=== PATIENT | female | born 1950 | race African-American/Black ===

== ENCOUNTER 2017-02-18 15:09 | Inpatient (IN) | payer BC, OTHER ==
--- NOTE | 2017-02-18 15:13 | PDOC ---
Rapid Medical Evaluation Time Seen by Provider: 02/18/17 15:13 Medical Evaluation: Allergies Allergy/AdvReac Type Severity Reaction Status Date / Time shellfish derived Allergy Difficulty Verified 10/30/14 17:36 Breathing I have performed a brief in-person evaluation of this patient. The patient presents with a chief complaint of: Pertinent physical exam findings: I have ordered the following: The patient will proceed to the ED for further evaluation.
--- NOTE | 2017-02-18 15:22 | PDOC ---
History of Present Illness - General History Source: Patient Exam Limitations: No Limitations - History of Present Illness Initial Comments: 02/18/17 16:12 The patient is a 66 year old female, with significant past medical history of IDDM,who presents today sent in by Dr. Galeas. The patient is complaining of epigastric pain, nausea, vomiting, and diarrhea, starting on Friday, 3 days ago, after eating 2 fish sandwiches from a fast food restaurant. She describes the epigastric pain as an achy cramping that radiates to the throat. The pain is 8/10 in severity and is associated with belching, hiccups, and a sour taste. The patient report multiple episodes of vomiting that was green in color. She reports that the diarrhea is pasty, not watery. Her last meal was on Friday and she only had cranberry juice and water today. The patient visited [facility] yesterday and was discharged with a diagnosis of a UTI. Denies chest pain, SOB. Denies fever, chills. Allergies: shellfish Surgical Hx: appendectomy PCP: Dr. Galeas <Naomi Knox - Last Filed: 02/18/17 16:20> <Gabriella Mendez - Last Filed: 02/18/17 23:11> - General History Source: Patient Exam Limitations: No Limitations <Mariela Loving - Last Filed: 02/20/17 11:25> - General Stated Complaint: DIFFICULTY BREATHING Time Seen by Provider: 02/18/17 15:13 Past History <Naomi Knox - Last Filed: 02/18/17 16:20> <Gabriella Mendez - Last Filed: 02/18/17 23:11> - Past Medical History Asthma: Yes Diabetes: Yes HTN: Yes - Psycho/Social/Smoking Cessation Hx Suicidal Ideation: No Smoking Status: No Smoking History: Never smoked Number of Cigarettes Smoked Daily: 0 <Mariela Loving - Last Filed: 02/20/17 11:25> - Past Medical History Allergies/Adverse Reactions: Allergies Allergy/AdvReac Type Severity Reaction Status Date / Time shellfish derived Allergy Difficulty Verified 10/30/14 17:36 Breathing Home Medications: Ambulatory Orders Amlodipine/Valsartan [Exforge 5-160 mg Tablet] 1 tab PO DAILY 10/30/14 Ibuprofen [Motrin -] 600 mg PO TID #21 tablet 10/30/14 Oxycodone HCl/Acetaminophen [Percocet 5-325 mg Tablet -] 1 - 2 tab PO Q6H #14 tablet 10/30/14 Insulin Lispro [Humalog] 2 unit SQ DAILY 02/18/17 Review of Systems - Review of Systems Able to Perform ROS?: Yes Comments:: 02/18/17 16:13 GENERAL/CONSTITUTIONAL: No: fever, chills, weakness, loss of appetite. HEAD, EYES, EARS, NOSE AND THROAT: No: change in vision, ear pain, discharge, sore throat, throat swelling. CARDIOVASCULAR: No: chest pain, lightheadedness, palpitations, syncope RESPIRATORY: No: cough, shortness of breath, wheezing, hemoptysis, stridor. GASTROINTESTINAL: +epigastric pain, nausea, vomiting, diarrhea. No: rectal bleeding, constipation. GENITOURINARY: No: dysuria, hematuria, frequency, urgency, flank pain. MUSCULOSKELETAL: No: back pain, neck pain, joint pain, muscle swelling or pain SKIN: No: lesions, pallor, rash or easy bruising. NEUROLOGIC: No: headache, vertigo, paresthesias, weakness ENDOCRINE: No: unexplained weight gain or loss HEMATOLOGIC/LYMPHATIC: No: anemia, easy bleeding, swelling nodes <Naomi Knox - Last Filed: 02/18/17 16:20> *Physical Exam - Vital Signs Last Vital Signs Temp Pulse Resp BP Pulse Ox 98.8 F 74 24 180/76 100 02/18/17 15:49 02/18/17 15:49 02/18/17 15:49 02/18/17 15:49 02/18/17 15:49 - Physical Exam Comments: 02/18/17 16:14 GENERAL: The patient is in no acute distress. HEAD: Normal with no signs of trauma. EYES: PERRLA, EOMI, sclera anicteric, conjunctiva clear. ENT: Ears normal, nares patent, oropharynx clear without exudates. Moist mucous membranes. NECK: Normal range of motion, supple without lymphadenopathy, JVD, or masses. LUNGS: Breath sounds equal, clear to auscultation bilaterally. No wheezes, and no crackles. HEART:Regular rate and rhythm, normal S1 and S2 without murmur, rub or gallop. ABDOMEN: RUQ tenderness to palpation. Soft, normoactive bowel sounds. No guarding, no rebound. EXTREMITIES: Normal range of motion, no edema. No clubbing or cyanosis. No erythema, or tenderness. NEUROLOGICAL: Cranial nerves II through XII grossly intact. Normal speech. No focal neurological deficits. MUSCULOSKELETAL: Back nontender to palpation, no CVA tenderness SKIN: Warm, Dry, normal turgor, no rashes or lesions noted. <Naomi Knox - Last Filed: 02/18/17 16:20> - Vital Signs Last Vital Signs Temp Pulse Resp BP Pulse Ox 98.7 F 64 20 153/75 98 02/18/17 18:19 02/18/17 18:19 02/18/17 18:19 02/18/17 18:19 02/18/17 18:19 <Gabriella Mendez - Last Filed: 02/18/17 23:11> Heart Score/ECG Review #1 ECG reviewed & interpreted by me at: 15:54 02/18/17 15:54 Twelve-lead EKG was performed and reviewed by me. There is normal sinus rhythm with a normal rate of 69 bpm. Left axis deviation. The intervals are normal - pr : 150ms, QRS:94ms, QTc:475ms. Non specific ST change. Diffuse t wave flattening <Mariela Loving - Last Filed: 02/20/17 11:25> ED Treatment Course - RADIOLOGY Radiograph Interpretation: 02/18/17 16:20 EXAM#: TYPE/EXAM: RESULT: [id number] RAD/CHEST X-RAY PORTABLE* Rule out sepsis Portable chest x-ray AP sitting. Since 08/25/2009, the cardiac silhouette remains borderline in size allowing for magnification with mild unfolding of the aortic arch and the lung is clear. Mediastinum and visualized osseous structures appear intact. Impression: No significant interval change or acute lung disease is present Reported By: Srinivasa Rios MD 02/18/17 1602 <Naomi Knox - Last Filed: 02/18/17 16:20> - LABORATORY CBC & Chemistry Diagram: 02/18/17 17:44 02/18/17 17:44 - ADDITIONAL ORDERS Additional order review: Laboratory Results 06/03/0102/18/17 02/18/17 17:57 17:44 17:44 INR PTT (Actin FS) Anticoagulation Therapy Puncture Site ABG pH ABG pCO2 at Pt Temp ABG pO2 at Pt Temp ABG HCO3 ABG O2 Sat (Measured) ABG O2 Content ABG Base Excess Prashanth Test O2 Delivery Device Oxygen Flow Rate Vent Mode Vent Rate Mechanical Rate PEEP Pressure Support Vent Sodium Potassium Chloride Carbon Dioxide Anion Gap BUN Creatinine Creat Clearance w eGFR Random Glucose Lactic Acid 1.3 Calcium Total Bilirubin AST ALT Alkaline Phosphatase Creatine Kinase CK-MB (CK-2) Troponin I Total Protein Albumin Total Amylase 56 Lipase 102 Acetone, Qual Blood Type A POSITIVE Antibody Screen Positive H Antibody Identification Anti e Antigen Identification Y 02/18/17 02/18/17 02/18/17 17:44 17:44 17:44 INR 1.25 H PTT (Actin FS) 27.9 Anticoagulation Therapy Puncture Site ABG pH ABG pCO2 at Pt Temp ABG pO2 at Pt Temp ABG HCO3 ABG O2 Sat (Measured) ABG O2 Content ABG Base Excess Prashanth Test O2 Delivery Device Oxygen Flow Rate Vent Mode Vent Rate Mechanical Rate PEEP Pressure Support Vent Sodium 138 Potassium 3.7 Chloride 98 Carbon Dioxide 25 Anion Gap 15 BUN 15 Creatinine 0.9 Creat Clearance w eGFR > 60 Random Glucose 164 H D Lactic Acid 2.2 H* Calcium 9.3 Total Bilirubin 1.5 H D AST 24 D ALT 21 D Alkaline Phosphatase 66 D Creatine Kinase 339 H CK-MB (CK-2) 2.672 Troponin I < 0.02 Total Protein 7.4 Albumin 3.9 Total Amylase Lipase Acetone, Qual Negative L Blood Type Antibody Screen Antibody Identification Antigen Identification 02/18/17 16:20 INR PTT (Actin FS) Anticoagulation Therapy Y Puncture Site Right radial ABG pH 7.55 H ABG pCO2 at Pt Temp 27.3 L ABG pO2 at Pt Temp 84.3 ABG HCO3 24.0 ABG O2 Sat (Measured) 98.0 ABG O2 Content 18.5 ABG Base Excess 2.9 H Prashanth Test Positive O2 Delivery Device Room air Oxygen Flow Rate Room air Vent Mode Y Vent Rate Y Mechanical Rate Y PEEP 0.0 Pressure Support Vent Y Sodium Potassium Chloride Carbon Dioxide Anion Gap BUN Creatinine Creat Clearance w eGFR Random Glucose Lactic Acid Calcium Total Bilirubin AST ALT Alkaline Phosphatase Creatine Kinase CK-MB (CK-2) Troponin I Total Protein Albumin Total Amylase Lipase Acetone, Qual Blood Type Antibody Screen Antibody Identification Antigen Identification 02/18/17 17:44 RBC 4.65 MCV 89.8 MCHC 33.7 RDW 11.8 MPV 10.3 Neutrophils % 74.8 D Lymphocytes % 16.3 D Monocytes % 8.6 Eosinophils % 0.1 D Basophils % 0.2 - Medications Given in the ED: ED Medications Discontinued Medications Generic Name Dose Route Start Last Admin Trade Name Lion PRN Reason Stop Dose Admin Famotidine/Sodium Chloride 50 mls @ 100 mls/hr 02/18/17 15:41 02/18/17 17:24 Pepcid 20 Mg Premixed Ivpb - IVPB 02/18/17 16:10 100 mls/hr ONCE ONE Administration Sodium Chloride 1,000 mls @ 1,000 mls/hr 02/18/17 15:40 02/18/17 17:24 Normal Saline - IV 02/18/17 16:39 1,000 mls/hr ASDIR STA Administration Sodium Chloride 1,000 mls @ 1,000 mls/hr 02/18/17 18:46 02/18/17 20:08 Normal Saline - IV 02/18/17 19:45 1,000 mls/hr ASDIR STA Administration Metoclopramide HCl 10 mg 02/18/17 18:48 02/18/17 20:00 Reglan Injection - IVPB 02/18/17 18:49 10 mg ONCE ONE Administration Morphine Sulfate 4 mg 02/18/17 15:41 02/18/17 17:24 Morphine Injection - IVPUSH 02/18/17 15:42 4 mg ONCE ONE Administration Ondansetron HCl 4 mg 02/18/17 15:40 02/18/17 17:24 Zofran Injection IVPUSH 02/18/17 15:41 4 mg ONCE ONE Administration <Gabriella Mendez - Last Filed: 02/18/17 23:11> - LABORATORY CBC & Chemistry Diagram: 02/19/17 06:30 02/19/17 06:30 <Mariela Loving - Last Filed: 02/20/17 11:25> Medical Decision Making - Medical Decision Making 02/18/17 22:[address] Nova Melendez who is covering for Dr. Joey Galeas (via answering service) at 22:41 Awaiting call back 02/18/17 23:11 Patient's case discussed with Dr. Melendez at 22:49 <Gabriella Mendez - Last Filed: 02/18/17 23:11> - Medical Decision Making 02/18/17 15:22 A portion of this note was documented by scribe services under my direction. I have reviewed the details of the note, within reason, and agree with the documentation with the following case summary and management plan written by me. 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 Pt states that three days ago, she returned from [place], she had 2 fish sandwiches from [facility] Since then, she has had nausea, vomiting, epigastric pain and loose stools No fevers or chills She was seen at an outside hospital Diagnosed with a UTI Pt was discharged to home Seen by her PMD today and sent to the ER 02/18/17 16:55 Pt labs not drawn or sent Awaiting labs and IVF 02/18/17 17:15 02/18/17 17:18 Laboratory Tests 02/18/17 16:20 ABG pH 7.55 H ABG pCO2 at Pt Temp 27.3 L ABG pO2 at Pt Temp 84.3 ABG Base Excess 2.9 H 02/18/17 17:25 CXR: nml 02/18/17 17:38 Labs not sent 02/18/17 18:41 Laboratory Tests 02/18/17 17:44 WBC 8.5 D Hgb 14.1 D Hct 41.7 Plt Count 192 Neutrophils % 74.8 D Lymphocytes % 16.3 D Laboratory Tests 02/18/17 02/18/17 02/18/17 17:44 17:44 17:44 Sodium 138 Potassium 3.7 Chloride 98 Carbon Dioxide 25 Anion Gap 15 BUN 15 Creatinine 0.9 Random Glucose 164 H D Lactic Acid 2.2 H* Total Bilirubin 1.5 H D Creatine Kinase 339 H Troponin I < 0.02 Total Amylase 56 Lipase 102 Acetone, Qual Negative L 02/18/17 18:42 Pt remains nauseous No evidence of DKA Will do CT abd and pelvis Pt signed out to Dr. Jerez <Mariela Loving - Last Filed: 02/20/17 11:25> *DC/Admit/Observation/Transfer - Attestations Scribe Attestion: 02/18/17 16:14 Documentation prepared by CON Junior, acting as biomedical equipment specialist for Mariela Loving MD. <Naomi Knox - Last Filed: 02/18/17 16:20> <Gabriella Mendez - Last Filed: 02/18/17 23:11> <Mariela Loving - Last Filed: 02/20/17 11:25> Diagnosis at time of Disposition: Ileus, SBO (small bowel obstruction) Abdominal pain Qualifiers: Abdominal location: generalized Qualified Code(s): R10.84 - Generalized abdominal pain - Referrals
[2017-02-18] MEDS ORDERED: SODIUM CHLORIDE 1,000 ML IV STA ×2 (15:40→18:46)
[2017-02-18] MEDS ORDERED: ONDANSETRON 4 MG/2 ML VIAL IVPUSH ONE (15:40)
[2017-02-18] MEDS ORDERED: FAMOTIDINE 20 MG/50 ML IVPB 50 ML IVPB ONE ×2 (15:41→17:01)
[2017-02-18] MEDS ORDERED: morphine CARPU-JECT 4 MG/1 ML DISP.SYRIN IVPUSH ONE (15:41)
[2017-02-18] MEDS ORDERED: morphine CARPU-JECT 4 MG/1 ML DISP.SYRIN ONE (17:01)
[2017-02-18] MEDS ORDERED: ONDANSETRON 4 MG/2 ML VIAL ONE (17:01)
[2017-02-18 17:09] LABS: ALLENS TEST POSITIVE; ART PUNCT SITE RIGHT RADIAL; ARTERIAL BLOOD GAS BASE EXCESS 2.9 meq/l (-2-2); ARTERIAL BLOOD GAS PO2 84.3 mmHg (80-100); PT. ON O2? NO
[2017-02-18 17:10] LABS: LPM/O2% ROOM AIR; TYPE OF O2 ROOM AIR
[2017-02-18 17:11] LABS: ARTERIAL BLOOD GAS pH 7.55 (7.35-7.45)
[2017-02-18 17:53] LABS: BASOPHIL 0.2 % (0-2.0); EOSINOPHIL 0.1 % (0-4.5); MCH 30.3 pg (25.7-33.7); MCHC 33.7 g/dl (32.0-36.0); MEAN CELL VOLUME 89.8 fl (80-96); MEAN PLT VOLUME 10.3 fl (7.5-11.1); NEUTROPHILS 74.8 % (42.8-82.8); PLATELET COUNT 192 K/MM3 (134-434); RDW 11.8 % (11.6-15.6); WHITE BLOOD COUNT 8.5 K/mm3 (4.0-10.0)
[2017-02-18 18:06] LABS: INR 1.25 (0.82-1.09); PROTHROMBIN TIME (PATIENT) 13.8 SEC (9.98-11.88)
[2017-02-18 18:08] LABS: AMYLASE 56 U/L (25-115)
[2017-02-18 18:09] LABS: ACTIVATED PTT 27.9 SECONDS (26.9-34.4)
[2017-02-18 18:20] LABS: ALBUMIN 3.9 g/dl (3.4-5.0); ANION GAP 15 (8-16); BILIRUBIN,TOTAL 1.5 mg/dL (0.2-1.0); CALCIUM 9.3 mg/dL (8.5-10.1); CO2 25 mmol/L (21-32); COCKROFT - GAULT 97.75; CREATININE 0.9 mg/dL (0.55-1.02); GLUCOSE,RANDOM 164 mg/dL (74-106); SGPT/ALT 21 U/L (12-78); TOT PROT 7.4 g/dl (6.4-8.2)
[2017-02-18 18:22] LABS: ALK PHOS 66 U/L (45-117); TROPONIN I < 0.02 ng/ml (0.00-0.05)
[2017-02-18 18:25] LABS: SGOT/AST 24 U/L (15-37)
[2017-02-18 18:27] LABS: ACETONE SERUM NEGATIVE (NEGATIVE)
[2017-02-18] MEDS ORDERED: METOCLOPRAMIDE HCL INJECTION 10 MG/2 ML VIAL IVPB ONE (18:48)
[2017-02-18] MEDS ORDERED: METOCLOPRAMIDE HCL INJECTION 10 MG/2 ML VIAL ONE (20:14)
--- NOTE | 2017-02-18 22:46 | PDOC ---
*Physical Exam - Vital Signs Last Vital Signs Temp Pulse Resp BP Pulse Ox 98.7 F 64 20 153/75 98 02/18/17 18:19 02/18/17 18:19 02/18/17 18:19 02/18/17 18:19 02/18/17 18:19 <Marco Jerez - Last Filed: 02/18/17 22:44> - Vital Signs Last Vital Signs Temp Pulse Resp BP Pulse Ox 98.7 F 64 20 153/75 98 02/18/17 18:19 02/18/17 18:19 02/18/17 18:19 02/18/17 18:19 02/18/17 18:19 <VanessaSkylaGabriella - Last Filed: 02/18/17 23:13> ED Treatment Course - LABORATORY CBC & Chemistry Diagram: 02/18/17 17:44 02/18/17 17:44 - ADDITIONAL ORDERS Additional order review: Laboratory Results 02/18/17 02/18/17 02/18/17 17:57 17:44 17:44 INR PTT (Actin FS) Anticoagulation Therapy Puncture Site ABG pH ABG pCO2 at Pt Temp ABG pO2 at Pt Temp ABG HCO3 ABG O2 Sat (Measured) ABG O2 Content ABG Base Excess Prashanth Test O2 Delivery Device Oxygen Flow Rate Vent Mode Vent Rate Mechanical Rate PEEP Pressure Support Vent Sodium Potassium Chloride Carbon Dioxide Anion Gap BUN Creatinine Creat Clearance w eGFR Random Glucose Lactic Acid 1.3 Calcium Total Bilirubin AST ALT Alkaline Phosphatase Creatine Kinase CK-MB (CK-2) Troponin I Total Protein Albumin Total Amylase 56 Lipase 102 Acetone, Qual Blood Type A POSITIVE Antibody Screen Positive H Antibody Identification Anti e Antigen Identification Y 02/18/17 02/18/17 02/18/17 17:44 17:44 17:44 INR 1.25 H PTT (Actin FS) 27.9 Anticoagulation Therapy Puncture Site ABG pH ABG pCO2 at Pt Temp ABG pO2 at Pt Temp ABG HCO3 ABG O2 Sat (Measured) ABG O2 Content ABG Base Excess Prashanth Test O2 Delivery Device Oxygen Flow Rate Vent Mode Vent Rate Mechanical Rate PEEP Pressure Support Vent Sodium 138 Potassium 3.7 Chloride 98 Carbon Dioxide 25 Anion Gap 15 BUN 15 Creatinine 0.9 Creat Clearance w eGFR > 60 Random Glucose 164 H D Lactic Acid 2.2 H* Calcium 9.3 Total Bilirubin 1.5 H D AST 24 D ALT 21 D Alkaline Phosphatase 66 D Creatine Kinase 339 H CK-MB (CK-2) 2.672 Troponin I < 0.02 Total Protein 7.4 Albumin 3.9 Total Amylase Lipase Acetone, Qual Negative L Blood Type Antibody Screen Antibody Identification Antigen Identification 02/18/17 16:20 INR PTT (Actin FS) Anticoagulation Therapy Y Puncture Site Right radial ABG pH 7.55 H ABG pCO2 at Pt Temp 27.3 L ABG pO2 at Pt Temp 84.3 ABG HCO3 24.0 ABG O2 Sat (Measured) 98.0 ABG O2 Content 18.5 ABG Base Excess 2.9 H Prashanth Test Positive O2 Delivery Device Room air Oxygen Flow Rate Room air Vent Mode Y Vent Rate Y Mechanical Rate Y PEEP 0.0 Pressure Support Vent Y Sodium Potassium Chloride Carbon Dioxide Anion Gap BUN Creatinine Creat Clearance w eGFR Random Glucose Lactic Acid Calcium Total Bilirubin AST ALT Alkaline Phosphatase Creatine Kinase CK-MB (CK-2) Troponin I Total Protein Albumin Total Amylase Lipase Acetone, Qual Blood Type Antibody Screen Antibody Identification Antigen Identification 02/18/17 17:44 RBC 4.65 MCV 89.8 MCHC 33.7 RDW 11.8 MPV 10.3 Neutrophils % 74.8 D Lymphocytes % 16.3 D Monocytes % 8.6 Eosinophils % 0.1 D Basophils % 0.2 - RADIOLOGY Radiology Studies Ordered: Category Date Time Status CHEST X-RAY PORTABLE* [RAD] Stat Radiology 02/18/17 22:41 Ordered - Medications Given in the ED: ED Medications Discontinued Medications Generic Name Dose Route Start Last Admin Trade Name Freq PRN Reason Stop Dose Admin Famotidine/Sodium Chloride 50 mls @ 100 mls/hr 02/18/17 15:41 02/18/17 17:24 Pepcid 20 Mg Premixed Ivpb - IVPB 02/18/17 16:10 100 mls/hr ONCE ONE Administration Sodium Chloride 1,000 mls @ 1,000 mls/hr 02/18/17 15:40 02/18/17 17:24 Normal Saline - IV 02/18/17 16:39 1,000 mls/hr ASDIR STA Administration Sodium Chloride 1,000 mls @ 1,000 mls/hr 02/18/17 18:46 02/18/17 20:08 Normal Saline - IV 02/18/17 19:45 1,000 mls/hr ASDIR STA Administration Metoclopramide HCl 10 mg 02/18/17 18:48 02/18/17 20:00 Reglan Injection - IVPB 02/18/17 18:49 10 mg ONCE ONE Administration Morphine Sulfate 4 mg 02/18/17 15:41 02/18/17 17:24 Morphine Injection - IVPUSH 02/18/17 15:42 4 mg ONCE ONE Administration Ondansetron HCl 4 mg 02/18/17 15:40 02/18/17 17:24 Zofran Injection IVPUSH 02/18/17 15:41 4 mg ONCE ONE Administration <Marco Jerez - Last Filed: 02/18/17 22:44> - LABORATORY CBC & Chemistry Diagram: 02/18/17 17:44 02/18/17 17:44 - ADDITIONAL ORDERS Additional order review: Laboratory Results 02/18/17 02/18/17 02/18/17 17:57 17:44 17:44 INR PTT (Actin FS) Anticoagulation Therapy Puncture Site ABG pH ABG pCO2 at Pt Temp ABG pO2 at Pt Temp ABG HCO3 ABG O2 Sat (Measured) ABG O2 Content ABG Base Excess Prashanth Test O2 Delivery Device Oxygen Flow Rate Vent Mode Vent Rate Mechanical Rate PEEP Pressure Support Vent Sodium Potassium Chloride Carbon Dioxide Anion Gap BUN Creatinine Creat Clearance w eGFR Random Glucose Lactic Acid 1.3 Calcium Total Bilirubin AST ALT Alkaline Phosphatase Creatine Kinase CK-MB (CK-2) Troponin I Total Protein Albumin Total Amylase 56 Lipase 102 Acetone, Qual Blood Type A POSITIVE Antibody Screen Positive H Antibody Identification Anti e Antigen Identification Y 02/18/17 02/18/17 02/18/17 17:44 17:44 17:44 INR 1.25 H PTT (Actin FS) 27.9 Anticoagulation Therapy Puncture Site ABG pH ABG pCO2 at Pt Temp ABG pO2 at Pt Temp ABG HCO3 ABG O2 Sat (Measured) ABG O2 Content ABG Base Excess Prashanth Test O2 Delivery Device Oxygen Flow Rate Vent Mode Vent Rate Mechanical Rate PEEP Pressure Support Vent Sodium 138 Potassium 3.7 Chloride 98 Carbon Dioxide 25 Anion Gap 15 BUN 15 Creatinine 0.9 Creat Clearance w eGFR > 60 Random Glucose 164 H D Lactic Acid 2.2 H* Calcium 9.3 Total Bilirubin 1.5 H D AST 24 D ALT 21 D Alkaline Phosphatase 66 D Creatine Kinase 339 H CK-MB (CK-2) 2.672 Troponin I < 0.02 Total Protein 7.4 Albumin 3.9 Total Amylase Lipase Acetone, Qual Negative L Blood Type Antibody Screen Antibody Identification Antigen Identification 02/18/17 16:20 INR PTT (Actin FS) Anticoagulation Therapy Y Puncture Site Right radial ABG pH 7.55 H ABG pCO2 at Pt Temp 27.3 L ABG pO2 at Pt Temp 84.3 ABG HCO3 24.0 ABG O2 Sat (Measured) 98.0 ABG O2 Content 18.5 ABG Base Excess 2.9 H Prashanth Test Positive O2 Delivery Device Room air Oxygen Flow Rate Room air Vent Mode Y Vent Rate Y Mechanical Rate Y PEEP 0.0 Pressure Support Vent Y Sodium Potassium Chloride Carbon Dioxide Anion Gap BUN Creatinine Creat Clearance w eGFR Random Glucose Lactic Acid Calcium Total Bilirubin AST ALT Alkaline Phosphatase Creatine Kinase CK-MB (CK-2) Troponin I Total Protein Albumin Total Amylase Lipase Acetone, Qual Blood Type Antibody Screen Antibody Identification Antigen Identification 02/18/17 17:44 RBC 4.65 MCV 89.8 MCHC 33.7 RDW 11.8 MPV 10.3 Neutrophils % 74.8 D Lymphocytes % 16.3 D Monocytes % 8.6 Eosinophils % 0.1 D Basophils % 0.2 - Medications Given in the ED: ED Medications Discontinued Medications Generic Name Dose Route Start Last Admin Trade Name Freq PRN Reason Stop Dose Admin Famotidine/Sodium Chloride 50 mls @ 100 mls/hr 02/18/17 15:41 02/18/17 17:24 Pepcid 20 Mg Premixed Ivpb - IVPB 02/18/17 16:10 100 mls/hr ONCE ONE Administration Sodium Chloride 1,000 mls @ 1,000 mls/hr 02/18/17 15:40 02/18/17 17:24 Normal Saline - IV 02/18/17 16:39 1,000 mls/hr ASDIR STA Administration Sodium Chloride 1,000 mls @ 1,000 mls/hr 02/18/17 18:46 02/18/17 20:08 Normal Saline - IV 02/18/17 19:45 1,000 mls/hr ASDIR STA Administration Metoclopramide HCl 10 mg 02/18/17 18:48 02/18/17 20:00 Reglan Injection - IVPB 02/18/17 18:49 10 mg ONCE ONE Administration Morphine Sulfate 4 mg 02/18/17 15:41 02/18/17 17:24 Morphine Injection - IVPUSH 02/18/17 15:42 4 mg ONCE ONE Administration Ondansetron HCl 4 mg 02/18/17 15:40 02/18/17 17:24 Zofran Injection IVPUSH 02/18/17 15:41 4 mg ONCE ONE Administration <Gabriella Mendez - Last Filed: 02/18/17 23:13> Medical Decision Making - Medical Decision Making 02/18/17 22:[address] Nova Melendez who is covering for Dr. Joey Galeas (via answering service) at 22:41 Awaiting call back 02/18/17 23:11 Patient's case discussed with Dr. Melendez at 22:49 <Gabriella Mendez - Last Filed: 02/18/17 23:13> *DC/Admit/Observation/Transfer - Discharge Dispostion Admit: Yes <Marco Jerez - Last Filed: 02/18/17 22:44> <Gabriella Mendez - Last Filed: 02/18/17 23:13> Diagnosis at time of Disposition: Ileus, SBO (small bowel obstruction) Abdominal pain Qualifiers: Abdominal location: generalized Qualified Code(s): R10.84 - Generalized abdominal pain - Referrals - Patient Instructions - Post Discharge Activity
[2017-02-18] MEDS ORDERED: HYDROmorphone HCL CARPU-JECT 1 MG/1 ML DISP.SYRIN IVPUSH PRN (22:49)
[2017-02-18] MEDS ORDERED: ONDANSETRON 4 MG/2 ML VIAL IVPB PRN (22:49)
[2017-02-19 00:37] LABS: URINE APPEARANCE CLEAR; URINE BILIRUBIN NEGATIVE (NEGATIVE); URINE BLOOD NEGATIVE (NEGATIVE); URINE COLOR YELLOW; URINE GLUCOSE (UA) 1+ (NEGATIVE); URINE KETONE 2+ (NEGATIVE); URINE LEUK ESTERASE NEGATIVE (NEGATIVE); URINE NITRITE NEGATIVE (NEGATIVE); URINE UROBILINOGEN NEGATIVE E.U./dl (0.2-1.0)
[2017-02-19 01:01] LABS: URINE PROTEIN 1+ (NEGATIVE)
[2017-02-19 01:03] LABS: URINE BACTERIA RARE /hpf (NONE SEEN); URINE HYALINE CAST 1 /lpf; URINE MUCUS MANY; URINE RBC 3 /hpf (0-3); URINE WBC 2 /hpf (3-5)
[2017-02-19 01:08] LABS: TROPONIN I < 0.02 ng/ml (0.00-0.05)
[2017-02-19] MEDS: SODIUM CHLORIDE 0.45%/POT 1,000 ML IV SCH ×2 (02:32→20:58)
[2017-02-19 03:14] VITALS: BMI 37.8
[2017-02-19] MEDS: INSULIN SLIDING SCALE (NOVOLOG) 1 VIAL SQ SCH ×4 (06:25→21:00)
[2017-02-19 07:40] LABS: BASOPHIL 0.3 % (0-2.0); MCH 31.2 pg (25.7-33.7); MEAN CELL VOLUME 89.3 fl (80-96); MEAN PLT VOLUME 10.2 fl (7.5-11.1); NEUTROPHILS 81.1 % (42.8-82.8); PLATELET COUNT 175 K/MM3 (134-434); RDW 12.1 % (11.6-15.6); WHITE BLOOD COUNT 7.8 K/mm3 (4.0-10.0)
[2017-02-19 07:58] LABS: ALBUMIN 3.6 g/dl (3.4-5.0); ALK PHOS 63 U/L (45-117); AMYLASE 48 U/L (25-115); BILIRUBIN,TOTAL 1.1 mg/dL (0.2-1.0); CALCIUM 8.9 mg/dL (8.5-10.1); CO2 25 mmol/L (21-32); COCKROFT - GAULT 122.4935; CREATININE 0.7 mg/dL (0.55-1.02); GLUCOSE,RANDOM 150 mg/dL (74-106); SGOT/AST 19 U/L (15-37); SGPT/ALT 19 U/L (12-78); TOT PROT 6.9 g/dl (6.4-8.2)
[2017-02-19 08:15] LABS: ANION GAP 12 (8-16)
[2017-02-19 08:16] LABS: TROPONIN I < 0.02 ng/ml (0.00-0.05)
--- NOTE | 2017-02-19 08:46 | HP ---
Admitting History and Physical - Admission History of Present Illness: 66 year old female, with significant past medical history of IDDM,who presents today sent in by Dr. Galeas. The patient is complaining of abdominal pain, nausea, vomiting, and diarrhea, starting on Friday, 3 days ago, after eating 2 fish sandwiches from a fast food restaurant. She describes the epigastric pain as an achy cramping that radiates to the throat. The pain is 8/10 in severity and is associated with belching, hiccups, and a sour taste. The patient report multiple episodes of vomiting that was green in color. She reports that the diarrhea is pasty, not watery. Her last meal was on Friday and she only had cranberry juice and water today. The patient visited [facility] yesterday and was discharged with a diagnosis of a UTI. 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 Cardiovascular: Yes: HTN Pulmonary: No: Asthma, COPD Heme/Onc: No: Anemia, Cancer Endocrine: Yes: Diabetes Mellitus - Past Surgical History Past Surgical History: Yes: Appendectomy, - Smoking History Smoking history: Never smoked Aproximately how many cigarettes per day: 0 - Alcohol/Substance Use Hx Alcohol Use: No Home Medications - Allergies Allergies/Adverse Reactions: Allergies Allergy/AdvReac Type Severity Reaction Status Date / Time shellfish derived Allergy Difficulty Verified 10/30/14 17:36 Breathing - Home Medications Home Medications: Ambulatory Orders Amlodipine/Valsartan [Exforge 5-160 mg Tablet] 1 tab PO DAILY 10/30/14 Ibuprofen [Motrin -] 600 mg PO TID #21 tablet 10/30/14 Oxycodone HCl/Acetaminophen [Percocet 5-325 mg Tablet -] 1 - 2 tab PO Q6H #14 tablet 10/30/14 Insulin Lispro [Humalog] 2 unit SQ DAILY 02/18/17 Review of Systems - Review of Systems Cardiovascular: denies: Chest Pain, Edema Respiratory: denies: SOB Gastrointestinal: reports: Abdominal Pain, Nausea, Vomiting Genitourinary: reports: Discharge Musculoskeletal: reports: No Symptoms Physical Examination Vital Signs: Vital Signs Temperature 99 F 02/19/17 05:00 Pulse Rate 65 02/19/17 05:00 Respiratory Rate 20 02/19/17 05:00 Blood Pressure 152/76 06/07/17 05:00 O2 Sat by Pulse Oximetry (%) 97 02/19/17 03:20 Cardiovascular: Yes: Regular Rate and Rhythm Respiratory: Yes: Regular, CTA Bilaterally Gastrointestinal: Yes: Soft. No: Ascites, Distention, Tenderness Labs: CBC, BMP 02/19/17 06:30 02/19/17 06:30 Imaging - Results Cat Scan: Report Reviewed Problem List - Problems (1) Abdominal pain Assessment/Plan: R/O BOWEL OBSTRUCTION NPO IVF GI AND SURGICAL CONSULT FUA Code(s): R10.9 - UNSPECIFIED ABDOMINAL PAIN Qualifiers: Abdominal location: generalized Qualified Code(s): R10.84 - Generalized abdominal pain (2) Ileus Assessment/Plan: ABOVE Code(s): K56.7 - ILEUS, UNSPECIFIED (3) Diabetes Assessment/Plan: BGM SS ENDO Code(s): E11.9 - TYPE 2 DIABETES MELLITUS WITHOUT COMPLICATIONS (4) HTN (hypertension) Assessment/Plan: MONITOR BP Code(s): I10 - ESSENTIAL (PRIMARY) HYPERTENSION
[2017-02-19] MEDS: KCL 10 MEQ IVPB 100 ML IVPB SCH ×2 (09:45→12:00)
[2017-02-19] MEDS: PANTOPRAZOLE SODIUM 100 ML IVPB SCH (09:46)
[2017-02-19] MEDS: HEPARIN NA (PORCINE) 5,000 UNITS/ML 1ML VIAL SQ SCH ×2 (09:46→21:00)
--- NOTE | 2017-02-19 12:35 | EKG ---
Test Reason : Blood Pressure : / mmHG Vent. Rate : 069 BPM Atrial Rate : 069 BPM P-R Int : 150 ms QRS Dur : 094 ms QT Int : 444 ms P-R-T Axes : 061 -34 048 degrees QTc Int : 475 ms NORMAL SINUS RHYTHM LEFT AXIS DEVIATION INCOMPLETE RIGHT BUNDLE BRANCH BLOCK NONSPECIFIC ST AND T WAVE ABNORMALITY ABNORMAL ECG WHEN COMPARED WITH ECG OF 24-FEB-2013 20:04, QT HAS LENGTHENED Confirmed by RADHA MADERA, MARY ([id number]) on 02/19/2017 12:34:58 PM Referred By: Confirmed By:MARY GARCIA MD
--- NOTE | 2017-02-19 13:25 | PN ---
Progress Note (short form) - Note Progress Note: surgery pt seen and examined. full consult dictated. 66f with previous appendectomy, c- sec x 2, presents with abd pain, n/v, diarrhea after eating suspect fish. Last colonoscopy 3 years ago. Pt's diarrhea has resolved and she feel better and wants to drink something. Ct shows dilated small bowel including terminal ileum. no contrast was used. on exam abd is soft, nt, nd, midline lower scar. Plan- suspect resolving enteritis > psbo. recommend trial of liquids. if tolerates can d/c tomorrow on liquids till Friday. if unable to tolerate would place ngt and repeat ct with oral contrast. pt is non toxic without evidence of bowel compromise.
--- NOTE | 2017-02-19 17:55 | CONS ---
INPATIENT CONSULTATION DATE OF CONSULTATION: 02/19/2017 REQUESTED BY: The shipping assistant. DICTATED BY: Jerardo Tejada DO REASON FOR CONSULTATION: Small-bowel obstruction. BRIEF HISTORY: This is a 66-year-old female with previous history of appendectomy and section done through a midline incision x2. She states that on Friday she had a fish dinner that she felt might have been suspect. She then developed abdominal pain, nausea, vomiting and diarrhea. The diarrhea eventually stopped. She came in to [facility] where she had a CAT scan of her abdomen and pelvis, which showed dilated small-bowel including the terminal ileum. Because of this, the radiologist wrote that the dilated bowel could be bowel obstruction, also a possibility of ileus. Her last colonoscopy was 3 years ago. She reports that it was unremarkable. She currently denies blood in her stool, denies recent weight loss. PAST MEDICAL HISTORY: Significant for diabetes, asthma, COPD. PAST SURGICAL HISTORY: As in HPI. SOCIAL HISTORY: Negative for alcohol, negative for tobacco. HOME MEDICATIONS: Include Norvasc, losartan and lisinopril. FAMILY HISTORY: Negative for malignancy in immediate family. REVIEW OF SYSTEMS: General: She denies fatigue or malaise. Cardiac: Denies chest pain or palpitations. Respiratory: GI: As per HPI. Currently, denies nausea. States she is actually hungry. Denies flatus. : Denies dysuria. Musculoskeletal: Denies joint pain or swelling. Psychiatric: Denies anxiety, depression, hearing voices. PHYSICAL EXAM: General: This is a morbidly obese 66-year-old female in no distress. Vital signs: She is afebrile. HEENT: Her head is normocephalic, her sclerae anicteric. Her neck is supple. Lungs: Her chest clear. Abdomen: Soft, nondistended, nontender. She has a midline surgical scar. She has no obvious hernia, but her exam is limited by obesity. Extremities: Trace edema. REVIEW OF HER LABORATORY: Her white blood cell count is normal at 7.8. There is no shift. Her chemistries are unremarkable. Her imaging is as stated in the HPI. ASSESSMENT: This is a 66-year-old female with abdominal pain, nausea, vomiting, diarrhea after eating fish. CAT scan is mostly consistent with ileus with dilated small bowel. There is no obvious transition point although she does have history of multiple previous surgeries, and an adhesive bowel obstruction is not entirely impossible. PLAN: At this point, she is asking for food. Recommend a trial of liquids. If she tolerates, she can likely be discharged home tomorrow on liquid diet until Friday. If she does not tolerate, would recommend placing a nasogastric tube and repeating CAT scan, this time with oral contrast. This could be given through the NG tube and would give us much more information. Patient is currently non-toxic. She has a benign abdominal exam, and she has no evidence of bowel compromise. DO MEAGAN ROBERTS/[id number]
[2017-02-19] MEDS ORDERED: INSULIN (NOVOLOG) ASPART 100 UNITS/ML 10ML VIAL ONE (20:51)
--- NOTE | 2017-02-20 00:44 | CONSULT ---
Consult Consult Specialty:: endocrine Referred by:: nasima Reason for Consultation:: iddm - History of Present Illness Chief Complaint: nausea and vomiting History of Present Illness: 66 year old female, with significant past medical history of IDDM,who presents today sent in by Dr. Galeas. The patient is complaining of epigastric pain, nausea, vomiting, and diarrhea, starting on Friday, 3 days ago, after eating 2 fish sandwiches from a fast food restaurant. 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 Cardio/Vascular: Yes: HTN Pulmonary: No: Asthma, COPD Endocrine: Yes: Diabetes Mellitus - Past Surgical History Past Surgical History: Yes: Appendectomy, - Alcohol/Substance Use Hx Alcohol Use: No - Smoking History Smoking history: Never smoked Aproximately how many cigarettes per day: 0 Home Medications - Allergies Allergies/Adverse Reactions: Allergies Allergy/AdvReac Type Severity Reaction Status Date / Time shellfish derived Allergy Difficulty Verified 10/30/14 17:36 Breathing - Home Medications Home Medications: Ambulatory Orders Amlodipine/Valsartan [Exforge 5-160 mg Tablet] 1 tab PO DAILY 10/30/14 Ibuprofen [Motrin -] 600 mg PO TID #21 tablet 10/30/14 Oxycodone HCl/Acetaminophen [Percocet 5-325 mg Tablet -] 1 - 2 tab PO Q6H #14 tablet 10/30/14 Insulin Lispro [Humalog] 2 unit SQ DAILY 02/18/17 Review of Systems - Review of Systems Constitutional: reports: Lethargy, Weakness Eyes: reports: No Symptoms Neck: reports: No Symptoms Cardiovascular: reports: Shortness of Breath Respiratory: reports: Exercise Intolerance, SOB on Exertion Gastrointestinal: reports: Bloating, Constipation Musculoskeletal: reports: Muscle Cramps, Muscle Weakness Integumentary: reports: No Symptoms Neurological: reports: Weakness Endocrine: reports: Unexplained Weight Gain Physical Exam Vital Signs: Vital Signs Temperature 98.4 F 02/19/17 19:00 Pulse Rate 64 02/19/17 23:00 Respiratory Rate 18 02/19/17 23:00 Blood Pressure 157/69 02/19/17 23:00 O2 Sat by Pulse Oximetry (%) 99 02/19/17 09:00 Constitutional: Yes: Anxious Eyes: Yes: EOM Intact HENT: Yes: Normocephalic Neck: Yes: Trachea Midline Cardiovascular: Yes: Regular Rate and Rhythm Respiratory: Yes: CTA Bilaterally Gastrointestinal: Yes: Abdomen, Obese, Hypoactive Bowel Sounds, Tenderness, Epigastrium ...Rectal Exam: Yes: Deferred Renal/: Yes: WNL Breast(s): Yes: WNL Musculoskeletal: Yes: WNL, Muscle Weakness Extremities: Yes: WNL Edema: No Integumentary: Yes: WNL Neurological: Yes: Alert, Oriented Labs: CBC, BMP 02/19/17 06:30 02/19/17 06:30 Problem List - Problems (1) Abdominal pain Code(s): R10.9 - UNSPECIFIED ABDOMINAL PAIN Qualifiers: Abdominal location: generalized Qualified Code(s): R10.84 - Generalized abdominal pain (2) Diabetes Code(s): E11.9 - TYPE 2 DIABETES MELLITUS WITHOUT COMPLICATIONS (3) Ileus Code(s): K56.7 - ILEUS, UNSPECIFIED (4) SBO (small bowel obstruction) Code(s): K56.69 - OTHER INTESTINAL OBSTRUCTION Assessment/Plan Current Active Problems Abdominal pain (Acute) Diabetes (Acute) HTN (hypertension) (Acute) Ileus (Acute) SBO (small bowel obstruction) (Acute) iddm uncontrolled Abnormal Lab Results 02/18/17 02/19/17 02/19/17 17:44 00:10 00:10 Potassium Random Glucose Lactic Acid 2.2 H* Total Bilirubin Creatine Kinase 312 H Ur Specific [place] >= 1.030 H Urine Protein 1+ H Urine Glucose (UA) 1+ H Urine Ketones 2+ H 02/19/17 06:30 Potassium 3.4 L Random Glucose 150 H Lactic Acid Total Bilirubin 1.1 H D Creatine Kinase 291 H Ur Specific [place] Urine Protein Urine Glucose (UA) Urine Ketones Laboratory Results - last 24 hr 02/18/17 02/19/17 02/19/17 17:44 00:10 00:10 WBC RBC Hgb Hct MCV MCHC RDW Plt Count MPV Neutrophils % Lymphocytes % Monocytes % Eosinophils % Basophils % Sodium Potassium Chloride Carbon Dioxide Anion Gap BUN Creatinine Creat Clearance w eGFR POC Glucometer Random Glucose Lactic Acid 2.2 H* Calcium Total Bilirubin AST ALT Alkaline Phosphatase Creatine Kinase 312 H CK-MB (CK-2) 2.999 Troponin I < 0.02 Total Protein Albumin Total Amylase Lipase Urine Color Yellow Urine Appearance Clear Urine pH 6.0 Ur Specific [place] >= 1.030 H Urine Protein 1+ H Urine Glucose (UA) 1+ H Urine Ketones 2+ H Urine Blood Negative Urine Nitrite Negative Urine Bilirubin Negative Urine Urobilinogen Negative Ur Leukocyte Esterase Negative Urine RBC 3 Urine WBC 2 Ur Epithelial Cells Rare Urine Bacteria Rare Hyaline Casts 1 Urine Mucus Many 02/19/17 02/19/17 02/19/17 05:56 06:30 06:30 WBC 7.8 RBC 4.32 Hgb 13.5 Hct 38.6 MCV 89.3 MCHC 35.0 RDW 12.1 Plt Count 175 MPV 10.2 Neutrophils % 81.1 Lymphocytes % 11.8 D Monocytes % 6.8 Eosinophils % 0.0 D Basophils % 0.3 Sodium 138 Potassium 3.4 L Chloride 101 Carbon Dioxide 25 Anion Gap 12 BUN 11 D Creatinine 0.7 D Creat Clearance w eGFR > 60 POC Glucometer 160 Random Glucose 150 H Lactic Acid Calcium 8.9 Total Bilirubin 1.1 H D AST 19 D ALT 19 Alkaline Phosphatase 63 Creatine Kinase 291 H CK-MB (CK-2) 2.388 Troponin I < 0.02 Total Protein 6.9 Albumin 3.6 Total Amylase 48 Lipase 145 Urine Color Urine Appearance Urine pH Ur Specific [place] Urine Protein Urine Glucose (UA) Urine Ketones Urine Blood Urine Nitrite Urine Bilirubin Urine Urobilinogen Ur Leukocyte Esterase Urine RBC Urine WBC Ur Epithelial Cells Urine Bacteria Hyaline Casts Urine Mucus 02/19/17 02/19/17 02/19/17 06:40 11:57 17:14 WBC RBC Hgb Hct MCV MCHC RDW Plt Count MPV Neutrophils % Lymphocytes % Monocytes % Eosinophils % Basophils % Sodium Potassium Chloride Carbon Dioxide Anion Gap BUN Creatinine Creat Clearance w eGFR POC Glucometer 133 124 Random Glucose Lactic Acid Calcium Total Bilirubin AST ALT Alkaline Phosphatase Creatine Kinase Cancelled CK-MB (CK-2) Troponin I Cancelled Total Protein Albumin Total Amylase Lipase Urine Color Urine Appearance Urine pH Ur Specific [place] Urine Protein Urine Glucose (UA) Urine Ketones Urine Blood Urine Nitrite Urine Bilirubin Urine Urobilinogen Ur Leukocyte Esterase Urine RBC Urine WBC Ur Epithelial Cells Urine Bacteria Hyaline Casts Urine Mucus 02/19/17 20:55 WBC RBC Hgb Hct MCV MCHC RDW Plt Count MPV Neutrophils % Lymphocytes % Monocytes % Eosinophils % Basophils % Sodium Potassium Chloride Carbon Dioxide Anion Gap BUN Creatinine Creat Clearance w eGFR POC Glucometer 130 Random Glucose Lactic Acid Calcium Total Bilirubin AST ALT Alkaline Phosphatase Creatine Kinase CK-MB (CK-2) Troponin I Total Protein Albumin Total Amylase Lipase Urine Color Urine Appearance Urine pH Ur Specific [place] Urine Protein Urine Glucose (UA) Urine Ketones Urine Blood Urine Nitrite Urine Bilirubin Urine Urobilinogen Ur Leukocyte Esterase Urine RBC Urine WBC Ur Epithelial Cells Urine Bacteria Hyaline Casts Urine Mucus Laboratory Tests 02/19/17 02/19/17 02/19/17 05:56 11:57 17:14 POC Glucometer 160 133 124 02/19/17 20:55 POC Glucometer 130 plan bgm achs novolog insulin dose once diet advances will resume insulin pump therapy pod pump check hb a1c
[2017-02-20] MEDS: INSULIN SLIDING SCALE (NOVOLOG) 1 VIAL SQ SCH ×4 (06:41→21:25)
[2017-02-20] MEDS: SODIUM CHLORIDE 0.45%/POT 1,000 ML IV SCH ×3 (06:41→23:06)
[2017-02-20] MEDS: HEPARIN NA (PORCINE) 5,000 UNITS/ML 1ML VIAL SQ SCH ×2 (10:14→21:25)
[2017-02-20] MEDS: PANTOPRAZOLE SODIUM 100 ML IVPB SCH (10:15)
--- NOTE | 2017-02-20 10:30 | EKG ---
Test Reason : Blood Pressure : / mmHG Vent. Rate : 060 BPM Atrial Rate : 060 BPM P-R Int : 164 ms QRS Dur : 096 ms QT Int : 468 ms P-R-T Axes : 062 -15 026 degrees QTc Int : 468 ms NORMAL SINUS RHYTHM NORMAL ECG WHEN COMPARED WITH ECG OF 18-FEB-2017 15:38, NO SIGNIFICANT CHANGE WAS FOUND Confirmed by SMITH FUNEZ MD ([id number]) on 02/20/2017 10:30:17 AM Referred By: STERLING ARMENTA Confirmed By:SMITH FUNEZ MD
--- NOTE | 2017-02-20 12:32 | PN ---
Progress Note, Physician Chief Complaint: patient seen and examined having clears no nausea abdominal pain is better complains of subjective pain on examination - Current Medication List Current Medications: Active Medications Heparin Sodium (Porcine) (Heparin -) 5,000 unit SQ BID [facility] Last Admin: 02/20/17 10:14 Dose: 5,000 unit Hydromorphone HCl (Dilaudid Injection -) 1 mg IVPUSH Q4H PRN PRN Reason: PAIN Last Admin: 02/19/17 07:15 Dose: 1 mg Potassium Chloride/Sodium Chloride (1/2ns+20meq Kcl) 1,000 mls @ 83 mls/hr IV ASDIR [facility] Last Admin: 02/20/17 10:15 Dose: 83 mls/hr Pantoprazole Sodium (Protonix 40mg Ivpb (Pre-Docked)) 100 mls @ 200 mls/hr IVPB DAILY [facility] Last Admin: 02/20/17 10:15 Dose: 200 mls/hr Insulin Aspart (Novolog Vial Sliding Scale -) 1 vial SQ ACHS [facility] PRN Reason: Protocol Last Admin: 02/20/17 11:45 Dose: Not Given Ondansetron HCl (Zofran Injection) 4 mg IVPB Q6H PRN PRN Reason: NAUSEA Last Admin: 02/19/17 09:00 Dose: 4 mg - Objective Vital Signs: Vital Signs Temperature 98.1 F 02/20/17 10:06 Pulse Rate 62 02/20/17 10:06 Respiratory Rate 18 02/20/17 10:06 Blood Pressure 131/74 02/20/17 10:06 O2 Sat by Pulse Oximetry (%) 99 02/19/17 09:00 Constitutional: Yes: Calm Neck: Yes: Trachea Midline Cardiovascular: Yes: Regular Rate and Rhythm, S1, S2 Respiratory: Yes: CTA Bilaterally Gastrointestinal: Yes: Soft, Hypoactive Bowel Sounds (on left lower quadrant), Other Edema: No Neurological: Yes: Alert, Oriented Labs: CBC, BMP 02/19/17 06:30 02/19/17 06:30 INR, PTT INR 1.25 (0.82-1.09) H 02/18/17 17:44 Problem List - Problems (1) Abdominal pain Assessment/Plan: sec to PSBO clear liquids for 3 more days plan to dc home in am if she tolerated puddding right now she only ad coffee and juice Code(s): R10.9 - UNSPECIFIED ABDOMINAL PAIN Qualifiers: Abdominal location: generalized Qualified Code(s): R10.84 - Generalized abdominal pain (2) Diabetes Assessment/Plan: novolog coverage dajuan resume insulin pump when she stars regular diet Code(s): E11.9 - TYPE 2 DIABETES MELLITUS WITHOUT COMPLICATIONS Qualifiers: Diabetes mellitus type: type 1 (3) HTN (hypertension) Assessment/Plan: norvasc for BP restart ARB if needed Code(s): I10 - ESSENTIAL (PRIMARY) HYPERTENSION
--- NOTE | 2017-02-20 16:24 | PN ---
Progress Note (short form) - Note Progress Note: surgery pt seen and examined. feels well. tolerated liquids. bm. afebrile abd-soft, nt, minimal distension Plan- resolving psbo vs more likely enteritis. surgically stable for d/c or liquids till Friday. f/u prn.
[2017-02-20] MEDS ORDERED: INSULIN (NOVOLOG) ASPART 100 UNITS/ML 10ML VIAL ONE (20:15)
--- NOTE | 2017-02-20 20:34 | CON.GI ---
Consult Consult Specialty:: GI Referred by:: Dr Melednez Reason for Consultation:: SBO - History of Present Illness Chief Complaint: Abdominal pain History of Present Illness: 66 F with h/o IDDM and remote AP admitted with N/V/abdominal pain which began [address] done which showed mild/mod small bowel dilatation suggesting either distal SBO or ileus. No transition zone noted. At this time patient feeling better. Had BM yesterday and passing air today. She is taking full liquid diet without difficulty. 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 Cardio/Vascular: Yes: HTN Pulmonary: No: Asthma, COPD Endocrine: Yes: Diabetes Mellitus - Past Surgical History Past Surgical History: Yes: Appendectomy, - Alcohol/Substance Use Hx Alcohol Use: No - Smoking History Smoking history: Never smoked Aproximately how many cigarettes per day: 0 Home Medications - Allergies Allergies/Adverse Reactions: Allergies Allergy/AdvReac Type Severity Reaction Status Date / Time shellfish derived Allergy Difficulty Verified 10/30/14 17:36 Breathing - Home Medications Home Medications: Ambulatory Orders Amlodipine/Valsartan [Exforge 5-160 mg Tablet] 1 tab PO DAILY 10/30/14 Ibuprofen [Motrin -] 600 mg PO TID #21 tablet 10/30/14 Oxycodone HCl/Acetaminophen [Percocet 5-325 mg Tablet -] 1 - 2 tab PO Q6H #14 tablet 10/30/14 Insulin Lispro [Humalog] 2 unit SQ DAILY 02/18/17 Physical Exam-GI Vital Signs: Vital Signs Temperature 99.2 F 02/20/17 18:00 Pulse Rate 60 02/20/17 18:00 Respiratory Rate 18 02/20/17 18:00 Blood Pressure 136/60 02/20/17 18:00 O2 Sat by Pulse Oximetry (%) 97 02/20/17 09:00 Constitutional: Yes: Well Nourished, Obese Cardiovascular: Yes: Regular Rate and Rhythm Respiratory: Yes: CTA Bilaterally Gastrointestinal Inspection: Yes: WNL ...Auscultate: Yes: Normoactive Bowel Sounds ...Palpate: Yes: Soft. No: Tenderness ...Percussion: Yes: Tympanitic (mildly) Labs: CBC, BMP 02/19/17 06:30 02/19/17 06:30 INR, PTT INR 1.25 (0.82-1.09) H 02/18/17 17:44 Imaging - Results Cat Scan: Report Reviewed (As above) Assessment/Plan Partial SBO resolving. ? etiology., Patient states she had her appendix removed but CT shows AP and op report from 2010 shows removal of cutaneous sebaceous cyst from abdominal wall. She is currently moving bowels and passing gas, and is tolerating a full liquid diet. Barring unforeseen circumstances, can d/c in AM with outpat f/u
[2017-02-21] MEDS: INSULIN SLIDING SCALE (NOVOLOG) 1 VIAL SQ SCH ×2 (06:40→12:09)
[2017-02-21] MEDS ORDERED: PT OWN MED DRAWER 7, Y5N ONE (07:05)
[2017-02-21 07:38] VITALS: TEMP 98.5
[2017-02-21] MEDS ORDERED: amLODIPine BESYLATE 5 MG TABLET (FP) PO SCH (10:00)
--- NOTE | 2017-02-21 10:05 | DS ---
Physical Examination Vital Signs: Vital Signs Temperature 98.5 F 02/21/17 07:00 Pulse Rate 65 02/21/17 07:00 Respiratory Rate 18 02/21/17 07:00 Blood Pressure 156/97 02/21/17 07:00 O2 Sat by Pulse Oximetry (%) 97 02/20/17 21:00 Constitutional: Yes: Calm Neck: Yes: Trachea Midline Cardiovascular: Yes: Regular Rate and Rhythm, S1, S2 Respiratory: Yes: CTA Bilaterally Gastrointestinal: Yes: Normal Bowel Sounds, Soft Edema: No Neurological: Yes: Alert, Oriented Labs: CBC, BMP 02/19/17 06:30 02/19/17 06:30 Discharge Summary Reason For Visit: ILEUS VS SBO Current Active Problems Abdominal pain (Acute) Diabetes (Acute) HTN (hypertension) (Acute) Ileus (Acute) SBO (small bowel obstruction) (Acute) Hospital Course: Admission History of Present Illness: 66 year old female, with significant past medical history of IDDM,who presents today sent in by Dr. Galeas. The patient is complaining of abdominal pain, nausea, vomiting, and diarrhea, starting on Friday, 3 days ago, after eating 2 fish sandwiches from a fast food restaurant. She describes the epigastric pain as an achy cramping that radiates to the throat. The pain is 8/10 in severity and is associated with belching, hiccups, and a sour taste. The patient report multiple episodes of vomiting that was green in color. She reports that the diarrhea is pasty, not watery. Her last meal was on Friday and she only had cranberry juice and water today. The patient visited [facility] yesterday and was discharged with a diagnosis of a UTI. 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 Cardiovascular: Yes: HTN Pulmonary: No: Asthma, COPD Heme/Onc: No: Anemia, Cancer Endocrine: Yes: Diabetes Mellitus - Past Surgical History Past Surgical History: Yes: Appendectomy, - Smoking History Smoking history: Never smoked Aproximately how many cigarettes per day: 0 CT scan shows dialted loops of small bowel possible PSBO/ ileus- seen by surgery and GI liquid diet for another 3 days, passing gas and having BM insulin pump on hold bc not eating regular as yet HTN resume meds exforge Condition: Improved - Instructions Diet, Activity, Other Instructions: liquid diet for another 3 days FU with PMD In one week Referrals: Joey Galeas MD [Primary Care Provider] - Disposition: HOME - Home Medications Comprehensive Discharge Medication List: Ambulatory Orders Amlodipine/Valsartan [Exforge 5-160 mg Tablet] 1 tab PO DAILY 10/30/14 Ibuprofen [Motrin -] 600 mg PO TID #21 tablet 10/30/14 Oxycodone HCl/Acetaminophen [Percocet 5-325 mg Tablet -] 1 - 2 tab PO Q6H #14 tablet 10/30/14 Insulin Lispro [Humalog] 2 unit SQ DAILY 02/18/17
[2017-02-21] MEDS: PANTOPRAZOLE SODIUM 100 ML IVPB SCH (10:13)
[2017-02-21] MEDS: HEPARIN NA (PORCINE) 5,000 UNITS/ML 1ML VIAL SQ SCH (10:14)
[2017-02-21] MEDS ORDERED: amLODIPine BESYLATE 5 MG TABLET (FP) PO ONE (11:30)
[2017-02-21 12:42] VITALS: BP 160/76; PULSE 60
[2017-02-22] MEDS ORDERED: LOSARTAN POTASSIUM 50 MG TABLET (FP) PO SCH (10:00)
== END 2017-02-21 13:10 | disposition home or self-care (01) | DRG 390 ==
LOC: JER 15:09 → JERBED 22:40 → UNDOADMIN 22:40 → JERBED 22:45 → J5S 02-19 02:11
PROVIDERS: ADMIT Family Medicine; ATTEND Family Medicine
DX: K56.60 Unspecified intestinal obstruction (principal); R10.84 Generalized abdominal pain; E11.65 Type 2 diabetes mellitus with hyperglycemia; Z79.4 Long term (current) use of insulin; I10 Essential (primary) hypertension; R11.2 Nausea with vomiting, unspecified
CPT/HCPCS: 36415; 36600; 71010-TC; 74176-TC; 80053; 81003; 81015; 82009; 82150; 82550; 82553; 82803; 83036; 83605; 83690; 84484; 85025; 85610; 85730; 86850; 86870; 86900; 86901; 86902; 87040; 87086; 87324; 87449; 93005; 93010; 99285-25; J1644; J3480

== ENCOUNTER 2020-06-09 07:32 | Day surgery (SDC) | payer BC ==
--- OUTSIDE RECORDS SUMMARY | 2020-06-01 10:10 | XMS ---
:1950 [facility] Providers Name Role Phone MD Joanne Blunt Unavailable Unavailable Other Unavailable Unavailable Re-disclosure Warning The records that you are about to access may contain information from federally- assisted alcohol or drug abuse programs. If such information is present, then the following federally mandated warning applies: This information has been disclosed to you from records protected by federal confidentiality rules (42 CFR part 2). The federal rules prohibit you from making any further disclosure of this information unless further disclosure is expressly permitted by the written consent of the person to whom it pertains or as otherwise permitted by 42 CFR part 2. A general authorization for the release of medical or other information is NOT sufficient for this purpose. The Federal rules restrict any use of the information to criminally investigate or prosecute any alcohol or drug abuse patient.The records that you are about to access may contain highly sensitive health information, the redisclosure of which is protected by Article 27-F of the [facility] Public Health law. If you continue you may haveaccess to information: Regarding HIV / AIDS; Provided by facilities licensed or operated by the [facility] Office of Mental Health; or Provided by the [facility] Office for People With Developmental Disabilities. If such information is present, then the following [facility] mandated warning applies: This information has been disclosed to you from confidential records which are protected by state law. State law prohibits you from making any further disclosure of this information without the specific written consent of the person to whom it pertains, or as otherwise permitted by law. Any unauthorized further disclosure in violation of state law may result in a fine or chcf sentence or both. A general authorization for the release of medical or other information is NOT sufficient authorization for further disclosure. Allergies and Adverse Reactions Type Description Substance Reaction Status Data Source(s ) [id number] [place] Other See Desc Active [facility] System tingling/ heart burn [id number] Synonym(s): SHELLFISH Shortness of Active [facility] System Encounters Encounter Providers Location Date Indications Data Source(s ) Outpatient Attender: Doctor [facility]T-[facility] DEPT 10/19/2019 S - Christiano L[facility]pez 03:52:38 PM Hospital EST Admission cancelled. Disregard status an d admitted date. Outpatient Attender: MD Rubio 5T-[facility] DEPT 10/05/2019 02:53:00 [facility] - 10[facility]05/2019 [facility] 11:59:00 PM EST Patient discharged. Medications Medication Brand Start Product Dose Route [facility] Indications Reaction Description Data Name Date Form Instructions Instructions Source(s) Ondansetron ondans O01686 active Ondan setron [facility] 4 MG etron 2016 {tab( Hydrochlorid [facility] 4 mg 05:48: s)} e System ing Oral oral 21 PM Tablet tablet EDT ondansetron , 4 mg oral disint tablet, egrati disintegrat ng ing Ciprofloxacin Cipro 02/17/2017 1 [id number] active Cipro 500 mg oral tablet; 1 tab(s) orally 2 times a day Ordered: 17-Feb-2017 Start: 17-Feb-2017 End: 24-Feb-2017 [facility] 500 MG Oral 500 mg 05:45:49 PM {tab(s)} Quantity: 14 Chaz Gibbons Generic Substitution All[facility] Tablet [Cipro] oral EDT Refills: 0 Comments: Avoid prolonged or excessive exposure to direct and/or artificial sunlight while taking this medication.Check with your doctor before becoming .Do not take dairy products, antacids, or iron prep System Cipro 500 mg tablet oral tablet Avoid prolonged or excessive exposure to direct and/or artificial sunlight while taking this medication.Check with your d octor before becoming .Do not take dairy products, antacids, or iron prepar ations within one hour of this medication.Finish all this medication un less otherwise directed by prescriber.Medication should be taken wi th plenty of water. Insulin HumaLOG 0 [id number] active HumaLOG Ca rtridge; subcutaneous [facility]: 17-Feb-2017 [facility] Lispro Cartridge Quantity: 0 [facility] HumaLOG Refills: 0 System Cartridge Exforge 0 [id number] active Exforge; ora lly Ordered: 17-Feb-2017 [facility] Quantity: 0 Prashanth, [facility] Refills: 0 System Insurance Providers Payer name Policy type Policy ID Covered Covered republican's Policy P kim / Coverage republican ID relationship to [employer] Inf ormation type andrade Blue [employer] PPO Blue Cross [id number] 1 [id number] Medicare Part Medicare [id number] 1 [id number] B Outpatient 1 Medicare Part Medicare [id number] B Outpatient Problems, Conditions, and Diagnoses Code Display Name Description Problem Type Effective Data Sour ce(s) Dates M51.36 Other Lumbar disc Diagnosis 10/19/2019 [facility] intervertebral disc narrowing 12:00:00 AM 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 10/15/2019 [facility] myelopathy or arthritis of 12:00:00 AM [place] radiculopathy, lumbar spine [facility] lumbar region Surgeries/Procedures Procedure Description Date Indications Data Source(s) XR Lumbar Spine AP + Lateral 10/05/2019 [facility] XR Lumbar Spine AP + Lateral 03:16:00 PM System EST - 10/05/2019 03:16:00 PM EST Lipase, Serum 02/17/2017 [facility] 09:16:34 AM System EDT - 02/17/2017 09:55:00 AM EDT Comprehensive Metabolic Panel 02/17/2017 [facility] 09:16:34 AM System EDT - 02/17/2017 09:55:00 AM EDT Electrocardiographic 02/17/2017 [facility] procedure (procedure) 09:16:34 AM System EDT - 02/17/2017 09:52:00 AM EDT Results ID Date Data Source [id number] 10/11/2019 02:21:31 AM EST [facility] Name Value Range Interpretation Description Data Sup porting Code Source(s) Document(s ) Deprecated Micro Normal (applies Aerobic [facility] Bacteria Result to non-numeric Culture, Urine Health identified in Final results) System Urine by Culture Aerobe Reading culture Note::< 10,000 CFU/ML ID Date Data Source [id number] 10/11/2019 02:21:31 AM EST [facility] Name Value Range Interpretation Description Data Sup porting Code Source(s) Document(s ) Color YELLOW Normal (applies Color [facility] to non-numeric Health results) System Specific gravity > 1.030 Normal (applies Urine Specific [facility] of Urine to non-numeric [facility] results) System pH.. 6.0 Normal (applies pH.. [facility] {pH_units to non-numeric Health } results) System Appearance of CLEAR Normal (applies Urine [facility] Urine to non-numeric Appearance Health results) System Glucose,UA NEGATIVE Normal (applies Glucose, UA [facility] to non-numeric Health results) System Urobilinogen 0.2 mg/dL Normal (applies Urobilinogen [facility] [Mass/volume] in to non-numeric UA Health Urine results) System Protein 100 mg/dl Normal (applies Protein [facility] [Mass/volume] in to non-numeric Health Serum or Plasma results) System BilirubinUrine SMALL Abnormal Bilirubin [facility] (applies to Urine Health non-numeric System results) Leukocyte esterase NEGATIVE Normal (applies Leukocyte Wil daysi [Units/volume] in to non-numeric Esterase Health Urine results) Concentration System WhiteBloodCellClum 2 Normal (applies White Blood [facility] p to non-numeric Cell Clump [facility] results) System Leukocytes 5 {/HPF} Normal (applies White Blood [facility] [#/volume] in to non-numeric Cells Health Unspecified results) System specimen by Automated count Nitrate+Nitrite NEGATIVE Normal (applies Nitrite [facility] [Mass/volume] in to non-numeric Health Unspecified results) System specimen Ketones > =80 Abnormal Ketones UA [facility] [Mass/volume] in (applies to Health Urine non-numeric System results) RedBloodCells 2 {/HPF} Normal (applies Red Blood [facility] to non-numeric Cells Health results) System Epithelial cells 6 {/HPF} Normal (applies Epithelial [facility] [Presence] in to non-numeric Cells Health Unspecified results) System specimen by Wet preparation UrineBlood TRACE-ABENA Abnormal Urine Blood [facility] ED (applies to Health non-numeric System results) Bacteria 2+ Abnormal Bacteria [facility] [Presence] in (applies to Health Unspecified non-numeric System specimen results) ID Date Data Source [id number] 10/11/2019 02:21:31 AM EST [facility] Name Value Range Interpretation Description Data Sup porting Code Source(s) Document(s ) Leukocytes 8.2 Normal (applies WBC Count [facility] [#/volume] in {10^3_uL to non-numeric Health Unspecified } results) System specimen by Automated count Erythrocytes 4.61 Normal (applies RBC Count [facility] [#/volume] in {10^6_uL to non-numeric Health Blood by } results) System Automated count Hemoglobin 14.5 Normal (applies Hemoglobin [facility] [Mass/volume] in {gm/dL} to non-numeric Health Blood results) System Erythrocyte mean 87.0 fl Normal (applies MCV [facility] corpuscular to non-numeric Health volume [Entitic results) System volume] by Automated count Hematocrit 40.1 % Normal (applies Hematocrit [facility] [Volume to non-numeric Health Fraction] of results) System Blood Platelets 213 Normal (applies Platelet Count [facility] [#/volume] in {10^3_uL to non-numeric Health Plasma by } results) System Automated count Erythrocyte mean 31.5 pg Normal (applies MCH [facility] corpuscular to non-numeric Health hemoglobin results) System [Entitic mass] by Automated count Erythrocyte mean 36.2 Normal (applies MCHC [facility] corpuscular {gm/dL} to non-numeric Health hemoglobin results) System concentration [Mass/volume] by Automated count Erythrocyte 11.3 % Below low normal RDW-CV [facility] distribution Health width [Entitic System volume] by Automated count Platelet mean 11.7 fl Above high MPV [facility] volume [Entitic normal Health volume] in Blood System by Automated count Monocytes 0.5 Normal (applies Monocyte # [facility] [#/volume] in {10^3_uL to non-numeric Health Blood by Manual } results) System count Eosinophils 0.00 Below low normal Eosinophil # [facility] [#/volume] in {10^3_uL Health Blood } System Basophils 0.02 Normal (applies Basophil # [facility] [#/volume] in {10^3_uL to non-numeric Health Blood by } results) System Automated count Lymphocyte 1.2 Normal (applies Lymphocyte # [facility] percent {10^3_uL to non-numeric Health differential } results) System count (procedure) Neutrophils 6.4 Normal (applies Neutrophil # [facility] [#/volume] in {10^3_uL to non-numeric Health Body fluid } results) System Neutrophils/100 78.5 % Above high Neutrophil % [facility] leukocytes in normal Health Blood by System Automated count Basophils/100 0.2 % Normal (applies Basophil % [facility] leukocytes in to non-numeric Health Unspecified results) System specimen by Manual count Monocytes/100 6.1 % Normal (applies Monocyte % [facility] leukocytes in to non-numeric Health Blood results) System Eosinophils/100 0.0 % Normal (applies Eosinophil % Wil daysi leukocytes in to non-numeric Health Unspecified results) System specimen Nucleated 0.0 Normal (applies NRBC % [facility] erythrocytes {/100_WB to non-numeric Health [#/volume] in C} results) System Body fluid ImmatureGranuloc 0.03 Normal (applies Immature [facility] ytes# {10^3_uL to non-numeric Granulocytes # Health } results) System Lymphocytes 14.8 % Below low normal Lymphocyte % [facility] [#/volume] in Health Blood by System Automated count ImmatureGranuloc 0.4 % Normal (applies Immature [facility] ytes% to non-numeric Granulocytes % Health results) System NRBC# 0.00 Below low normal NRBC # [facility] {10^3_uL Health } System ID Date Data Source [id number] 10/11/2019 02:21:31 AM EST [facility] Name Value Range Interpretation Description Data Source(s ) Supporting Code Document(s ) Troponin 0.01 Normal (applies to Troponin I [facility] IQuantit ng/mL non-numeric Quantitative - Health System ative-MV results) MV Only Only ID Date Data Source [id number] 10/11/2019 02:21:31 AM EST [facility] Name Value Range Interpretation Description Data Sup porting Code Source(s) Document(s ) Erythrocytes 4.59 Normal (applies RBC Count [facility] [#/volume] in {10^6_uL to non-numeric Health Blood by } results) System Automated count Leukocytes 8.6 Normal (applies WBC Count [facility] [#/volume] in {10^3_uL to non-numeric Health Unspecified } results) System specimen by Automated count Hematocrit 40.6 % Normal (applies Hematocrit [facility] [Volume to non-numeric Health Fraction] of results) System Blood Erythrocyte mean 88.5 fl Normal (applies MCV [facility] corpuscular to non-numeric Health volume [Entitic results) System volume] by Automated count Hemoglobin 14.4 Normal (applies Hemoglobin [facility] [Mass/volume] in {gm/dL} to non-numeric Health Blood results) System Erythrocyte mean 31.4 pg Normal (applies MCH [facility] corpuscular to non-numeric Health hemoglobin results) System [Entitic mass] by Automated count Erythrocyte 11.2 % Below low normal RDW-CV [facility] distribution Health width [Entitic System volume] by Automated count Erythrocyte mean 35.5 Normal (applies MCHC [facility] corpuscular {gm/dL} to non-numeric Health hemoglobin results) System concentration [Mass/volume] by Automated count Platelets 210 Normal (applies Platelet Count [facility] [#/volume] in {10^3_uL to non-numeric Health Plasma by } results) System Automated count Platelet mean 12.1 fl Above high MPV [facility] volume [Entitic normal Health volume] in Blood System by Automated count Eosinophils 0.00 Below low normal Eosinophil # [facility] [#/volume] in {10^3_uL Health Blood } System Monocytes 0.6 Normal (applies Monocyte # [facility] [#/volume] in {10^3_uL to non-numeric Health Blood by Manual } results) System count Neutrophils 6.8 Normal (applies Neutrophil # [facility] [#/volume] in {10^3_uL to non-numeric Health Body fluid } results) System Lymphocyte 1.2 Normal (applies Lymphocyte # [facility] percent {10^3_uL to non-numeric Health differential } results) System count (procedure) Neutrophils/100 78.8 % Above high Neutrophil % [facility] leukocytes in normal Health Blood by System Automated count Basophils 0.02 Normal (applies Basophil # [facility] [#/volume] in {10^3_uL to non-numeric Health Blood by } results) System Automated count Basophils/100 0.2 % Normal (applies Basophil % [facility] leukocytes in to non-numeric Health Unspecified results) System specimen by Manual count Monocytes/100 7.2 % Normal (applies Monocyte % [facility] leukocytes in to non-numeric Health Blood results) System Eosinophils/100 0.0 % Normal (applies Eosinophil % Wil daysi leukocytes in to non-numeric Health Unspecified results) System specimen Nucleated 0.0 Normal (applies NRBC % [facility] erythrocytes {/100_WB to non-numeric Health [#/volume] in C} results) System Body fluid Lymphocytes 13.5 % Below low normal Lymphocyte % [facility] [#/volume] in Health Blood by System Automated count ImmatureGranuloc 0.3 % Normal (applies Immature [facility] ytes% to non-numeric Granulocytes % Health results) System ImmatureGranuloc 0.03 Normal (applies Immature [facility] ytes# {10^3_uL to non-numeric Granulocytes # Health } results) System NRBC# 0.00 Below low normal NRBC # [facility] {10^3_uL Health } System ID Date Data Source [id number] 10/11/2019 02:21:31 AM EST [facility] Name Value Range Interpretation Description Data Sup porting Code Source(s) Document(s ) Sodium 141 Normal (applies Sodium, Serum [facility] [Moles/volume] in mmol/L to non-numeric Health Serum or Plasma results) System Chloride 105 Normal (applies Chloride, [facility] [Moles/volume] in mmol/L to non-numeric Serum Health Serum or Plasma results) System Potassium 3.4 Below low normal Potassium, [facility] [Mass/volume] in mmol/L Serum Health Serum or Plasma System TotalProtein 7.6 Normal (applies Total Protein [facility] mg/dl to non-numeric Health results) System Carbon dioxide, 23.0 Normal (applies CO2, Serum [facility] total mmol/L to non-numeric Health [Moles/volume] in results) System Serum or Plasma Urea nitrogen 14 Normal (applies Blood Urea [facility] [Mass/volume] in mg/dl to non-numeric Nitrogen, Health Serum or Plasma results) Serum System Glucose 129 Above high Glucose, [facility] [Mass/volume] in mg/dL normal Serum Health Serum or Plasma System Alkaline 71 Normal (applies Alkaline [facility] phosphatase {IU/L} to non-numeric Phosphatase, Health isoenzymes results) Serum System [Enzymatic activity/volume] in Serum or Plasma by Heat stability Bilirubin.total 1.7 Above high Bilirubin, [facility] [Mass/volume] in mg/dl normal Serum Total Health Serum or Plasma System Creatinine 1.00 Normal (applies Creatinine, [facility] [Mass/volume] in mg/dl to non-numeric Serum Health Serum or Plasma results) System DirectBilirubin 0.6 Above high Direct [facility] mg/dl normal Bilirubin Health System Aspartate 20 Normal (applies Aspartate [facility] aminotransferase {IU/L} to non-numeric Transaminase, Heal th [Enzymatic results) Serum System activity/volume] in Serum or Plasma by With P-5'-P Albumin 4.3 Normal (applies Albumin, [facility] [Mass/volume] in {gm/dl} to non-numeric Serum Health Serum or Plasma results) System I.Phosphorus 2.7 Normal (applies I. Phosphorus [facility] mg/dl to non-numeric Health results) System Alanine 20 Normal (applies Alanine [facility] aminotransferase {IU/L} to non-numeric Aminotransfer Heal th [Enzymatic results) ase, Serum System activity/volume] in Serum or Plasma Calcium 9.8 Normal (applies Calcium, [facility] [Mass/volume] in mg/dl to non-numeric Total Serum Health Serum or Plasma results) System A/GRatio 1.30 Normal (applies A/G Ratio [facility] to non-numeric Health results) System Urate 4.8 Normal (applies Uric Acid, [facility] [Mass/volume] in mg/dl to non-numeric Serum Health Serum or Plasma results) System ID Date Data Source [id number] 10/11/2019 02:21:31 AM EST [facility] Name Value Range Interpretation Description Data Source(s ) Supporting Code Document(s ) PH* 7.412 Above high normal PH* [facility] {pH_units Health System } BaseExce 1.90 Normal (applies to Base Excess* [facility] ss* {mEq/L} non-numeric Health System results) PCO2* 41.7 Normal (applies to PCO2* [facility] {mm_Hg} non-numeric Health System results) HCO3* 26.5 Normal (applies to HCO3* [facility] mmol/L non-numeric Health System results) Chloride 103 Normal (applies to Chloride, VB [facility] ,VB mmol/L non-numeric Health System results) Lactate. 1.7 Normal (applies to Lactate. [facility] mmol/L non-numeric Health System results) Potassiu 3.7 Normal (applies to Potassium, VB [facility] m,VB mmol/L non-numeric Health System results) Glucose, 136 mg/dL Above high normal Glucose, VB [facility] Sodium,V 140 Normal (applies to Sodium, VB [facility] B mmol/L non-numeric Health System results) IonizedC 1.24 Normal (applies to Ionized [facility] alcium,V mmol/L non-numeric Calcium, Health System B results) [id number] 46.20 % Normal (applies to O2 Saturation* [facility] tion* non-numeric Health System results) ID Date Data Source [id number] 10/05/2019 03:16:00 PM [facility] Study: Lumbar spine x-rayHistory: Lumbag o with right-sided sciatica.Comparison: No similar prior study.Technique: AP, later al, L5-S1 lateral views of the lumbar spine areperformed.Findings:The bone mineral d ensity as low. There is mild straightening of the lumbarlordosis.Vertebral body height s and configuration are maintained. There is disc height loss at L4-5 andL5-S1.Parasp inal areas demonstrate large amount stool/constipation.Impression:Low bone m ineraldensity and degenerative disc disease particularly at L5-S1.Constipation. Name Value Range Interpretation Code Description Data Emma rce(s) Supporting Document(s ) Procedure Patient Treatment Plan of Care Planned Activity Planned Date Details Description Data Source (s) Ondansetron 4 MG 02/17/2017 [facility] Disintegrating Oral Tablet 05:48:21 PM EDT System Ciprofloxacin 500 MG Oral 02/17/2017 [facility] Tablet [Cipro] 05:45:49 PM EDT System Insulin Lispro [facility] Exforge [facility]
[2020-06-07 16:19] VITALS: BMI 34.5
--- OUTSIDE RECORDS SUMMARY | 2020-06-09 07:38 | XMS ---
:1950 Author Organization [facility] Care Team Providers Name Role Phone MD Jose Raul Joanne D Unavailable Unavailable Other Unavailable Unavailable Re-disclosure Warning [...] is protected by Article 27-F of the [facility] Public Health law. If you continue you may haveaccess to information: Regarding HIV / AIDS; Provided by facilities licensed or operated by the [facility] Office of Mental Health; or Provided by the [facility] Office for People With Developmental Disabilities. If such information is present, then the following [facility] mandated warning applies: This information has been [...] law may result in a fine or mcfp sentence or both. A general authorization for the release of medical or other information is NOT sufficient authorization for further disclosure. Allergies and Adverse Reactions Type Description Substance Reaction Status Data Source(s ) [id number] [place] Other See Desc Active [facility] tingling/ heart burn [id number] Synonym(s): SHELLFISH Shortness of Active [facility] Encounters Encounter Providers Location Date Indications Data Source(s ) Outpatient Attender: Doctor [facility] DEPT 10/19/2019 [facility] renate López 03:52:38 PM Hospital EST Admission cancelled. Disregard status an d admitted date. Outpatient Attender: MD Rubio [facility] DEPT [facility]2019 [facility] 11:59:00 PM EST Patient discharged. Medications Medication Brand Start Product Dose Route Administrative Pharmacy [facility] Indications Reaction Description Data Name Date Form Instructions Instructions Source(s) Ondansetron ondans [id number] active Ondan setron [facility] 4 MG etron 2016 {tab( Hydrochlorid Healt h Disintegrat 4 mg 05:48: s)} e System ing Oral oral 21 PM Tablet tablet EDT ondansetron , 4 mg oral disint tablet, egrati disintegrat ng ing Ciprofloxacin Cipro 02/17/2017 1 [id number] active Cipro 500 mg oral tablet; 1 tab(s) orally 2 times a day Ordered: 17-Feb-2017 Start: 17-Feb-2017 End: 24-Feb-2017 [facility] 500 MG Oral 500 mg 05:45:49 PM {tab(s)} Quantity: 14 ShaiChaz Generic Substitution Allowed Health Tablet [Cipro] oral [...] th plenty of water. Insulin HumaLOG 0 [id number] active HumaLOG Ca rtridge; subcutaneous Ordered: 17-Feb-2017 [facility] Lispro Cartridge Quantity: 0 A llen, [facility] HumaLOG Refills: 0 System Cartridge Exforge 0 [id number] active Exforge; ora lly Ordered: 17-Feb-2017 [facility] Quantity: 0 Prashanth, [facility] Refills: 0 System Insurance Providers Payer name Policy type Policy ID Covered Covered green party's Policy P kim / Coverage green party ID relationship to [facility] ormation type nolan BC PPO [id number] SP [id number] Blue Cross PPO Blue Cross [id number] 1 [id number] Medicare Part Medicare [id number] 1 [id number] B Outpatient 1 Medicare Part Medicare [id number] Outpatient Problems, Conditions, and Diagnoses Code Display Name Description Problem Type Effective Data Sour ce(s) Dates M51.36 Other Lumbar disc Diagnosis 10/19/2019 [facility] intervertebral disc narrowing 12:00:00 AM Caden on degeneration, [facility] lumbar region K59.00 Constipation, Constipated Diagnosis 10/19/2019 [facility] Moun t unspecified 12:00:[address] [facility] 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 XR Lumbar Spine AP + Lateral 03:16:00 PM System EST - 10/05/2019 03:16:00 PM EST Lipase, Serum 02/17/2017 [facility] 09:16:34 AM System EDT - 02/17/2017 09:55:00 AM EDT Comprehensive Metabolic Panel 02/17/2017 [facility] 09:16:34 AM System EDT - 02/17/2017 09:55:00 AM EDT Electrocardiographic 02/17/2017 [facility] procedure (procedure) 09:16:34 AM System EDT - 02/17/2017 09:52:00 AM EDT Results ID Date Data Source [id number] 06/05/2020 10:30:00 AM EDT [facility] Name Value Range Interpretation Description Data Sup porting Code Source(s) Document(s ) SARS [facility] coronavirus 2 RNA This lab was ordered by [facility] and reported by [facility]. ID Date Data Source [id number] 10/11/2019 02:21:31 AM EST [facility] Name Value Range Interpretation Description Data Sup porting Code Source(s) Document(s ) Deprecated Micro Normal (applies Aerobic [facility] Bacteria Result to non-numeric Culture, Urine Health identified in Final results) System Urine by Culture Aerobe Reading culture Note::< 10,000 CFU/ML ID Date Data Source [id number] 10/11/2019 02:21:31 AM EST [facility] Name Value Range Interpretation Description Data Sup porting Code Source(s) Document(s ) Color YELLOW Normal (applies Color [facility] to non-numeric Health results) System Specific gravity > 1.030 Normal (applies Urine Specific [facility] of Urine to non-numeric [facility] results) System pH.. 6.0 Normal (applies [...] System specimen results) ID Date Data Source [id number] 10/11/2019 02:21:31 AM EST [facility] [...] Health } System ID Date Data Source [id number] 10/11/2019 02:21:31 AM EST [facility] Name Value Range Interpretation Description Data Source(s ) Supporting Code Document(s ) Troponin 0.01 Normal (applies to Troponin I [facility] IQuantit ng/mL non-numeric Quantitative - Health System ative-MV results) MV Only Only ID Date Data Source [id number] 10/11/2019 02:21:31 AM EST [facility] [...] Health } System ID Date Data Source [id number] 10/11/2019 02:21:31 AM EST [facility] [...] Plasma results) System ID Date Data Source [id number] 10/11/2019 02:21:31 AM EST [facility] System Name Value Range Interpretation Description Data [...] mg/dL Above high normal Glucose, VB [facility] VB [facility] Sodium,V 140 Normal (applies to Sodium, VB [facility] B mmol/L non-numeric Health System results) IonizedC 1.24 Normal (applies to Ionized [facility] alcium,V mmol/L non-numeric Calcium, Health System B results) L7Fxlleq 46.20 % Normal (applies to O2 Saturation* [facility] tion* non-numeric Health System results) ID Date Data Source [id number] 10/05/2019 03:16:[address] [facility] Study: Lumbar spine x-rayHistory: Lumbag o with [...] PM EDT System Insulin Lispro [facility] System Exforge [facility]
[2020-06-09] MEDS ORDERED: MIDAZOLAM HCL 2 MG/2 ML SINGLE DOSE VIAL ONE (09:18)
[2020-06-09] MEDS ORDERED: ROPIVACAINE HCL 0.5% 30ML VIAL ONE (09:18)
[2020-06-09] MEDS ORDERED: PROPOFOL 20 ML ONE ×2 (10:03)
[2020-06-09] MEDS ORDERED: ePHEDrine SULFATE 50 MG/1 ML AMPULE ONE (11:03)
[2020-06-09] MEDS ORDERED: oxyCODONE HCL 5 MG TABLET PO PRN ×2 (13:02)
[2020-06-09] MEDS ORDERED: ONDANSETRON 4 MG/2 ML VIAL IVPUSH PRN (13:02)
[2020-06-09] MEDS ORDERED: LACTATED RINGERS SOLUTION 1,000 ML IV SCH (13:15)
[2020-06-09 14:19] VITALS: BP 125/84; PULSE 65; TEMP 98
--- NOTE | 2020-06-11 16:08 | OP ---
DATE OF OPERATION: 06/09/2020 SURGEON: Jerardo Ridley MD CERTIFIED SURGICAL TECHNICIAN: HANSA Santoyo PREOPERATIVE DIAGNOSES: 1. Right shoulder rotator cuff tear. 2. Right shoulder adhesive capsulitis. 3. Right shoulder impingement syndrome. 4. Right shoulder acromioclavicular joint disease. 5. Right shoulder superior labral tear from anterior to posterior with synovitis. POSTOPERATIVE DIAGNOSES: 1. Right shoulder rotator cuff tear. 2. Right shoulder adhesive capsulitis. 3. Right shoulder impingement syndrome. 4. Right shoulder acromioclavicular joint disease. 5. Right shoulder superior labral tear from anterior to posterior with synovitis. PROCEDURE: 1. Right shoulder arthroscopy with arthroscopic rotator cuff repair (CPT code 52495). 2. Right shoulder arthroscopy with lysis and resection of adhesions (CPT code 44265). 3. Right shoulder arthroscopy with subacromial decompression (CPT code 00790). 4. Right shoulder arthroscopy with resection acromioclavicular joint (CPT code 30597). 5. Right shoulder arthroscopy with debridement (CPT code 01383). FINDINGS: 1. Glenohumeral synovitis. 2. Anterior adhesions. 3. Superior labral tear from anterior to posterior type 1 with anterior labral fraying. 4. A 10% biceps wall thickness supraspinatus rotator cuff tear central portion. 5. Type 2 acromion with thickened scarred subacromial space. 6. Anterior and lateral acromion spurs. 7. Inferior supraspinatus acromioclavicular joint disease. 8. Posterior labral fraying. 9. Grade 2 to 3 cartilage injury 2 cm x 2 cm glenoid and the anterior humerus. REPAIR TYPE: Two mattress sutures were placed into the supraspinatus, secured to bleeding bone bed using a Thierry anchor and mattress sutures using the Opus fixation system. PROCEDURE: Informed consent was obtained. The patient was taken to the operating room, where the upper extremity was prepped and draped in a sterile fashion. The shoulder was manipulated for a full range of motion. A posterior incision portal was made and directed to the glenohumeral joint. Under direct visualization, an anterior incision and portal was made. Extensive synovitis, as well as chondral injuries throughout the glenohumeral joint were debrided and removed. Any identified labral injuries, including the superior labral tear, anterior and posterior, and anterior labrum torn portions, were removed as well. The rotator cuff was visualized and noted to have a full-thickness tear. The edges were debrided. The posterior incision portal was redirected to the subacromial space where a lateral incision portal was made. Excessive and thickened scar tissue noted throughout the subacromial space, including bursal and scar tissue, were removed. The type 2 acromion was converted into a flattened type 1 using a bur for subacromial decompression. The distal inferior spur at the distal clavicle was also debrided with the use of an accessory portal in the acromioclavicular joint. The edges of the rotator cuff were identified. Sutures were placed into the rotator cuff and secured using anchors through the greater tuberosity. Prior to securing, a bleeding bed was made using a small bur, creating a bleeding surface of the rotator cuff insertion. The shoulder was then drained, a single suture was placed in all portals, a sterile dressing was placed and the patient was transferred to the recovery room without complication. The PA listed above was present and assisted at surgery. Their presence was absolutely medically necessary for the completion of the procedure. They helped hold the arthroscopy, pass instruments (and implants when indicated) and the procedure could not have been completed without their assistance. JERARDO RIDLEY M.D. [id number]
--- NOTE | 2020-06-14 17:19 | PATH ---
Surgical Pathology Report Patient Name: COMFORT [facility]ANTOR [facility]. Rec. #: [id number] /Age/Gender: 1950 (Age: 70) / F Account: [id number] Location: [facility] Taken: 06/09/2020 Received: 06/09/2020 Reported: 06/14/2020 Physicians: Jerardo Whittaker M.D. Specimen(s) Received RIGHT SHOULDER SHAVINGS Clinical History Right shoulder joint pain Final Diagnosis RIGHT SHOULDER SHAVINGS: SKELETAL MUSCLE, FIBROCARTILAGINOUS TISSUE AND SYNOVIAL TISSUE. NEGATIVE FOR MALIGNANCY. Electronically Signed Elis Riojas M.D. Gross Description Received in formalin, labeled "right shoulder shavings," is a 4.7 x 4.5 x 0.3 cm. aggregate of cochran-yellow soft tissue fragments. A customer service representative teller portion is submitted in one cassette. 06/12/2020 [facility]06/12/2020
== END 2020-06-09 13:15 | disposition home or self-care (01) ==
LOC: FASU 07:32
PROVIDERS: ATTEND Orthopaedic Surgery
PROC: 0RNJ4ZZ Release Right Shoulder Joint, Percutaneous Endoscopic Approach (ICD-10-PCS; 2020-06-09)
PROC: 0RBJ4ZZ Excision of Right Shoulder Joint, Percutaneous Endoscopic Approach (ICD-10-PCS; 2020-06-09)
PROC: 0PB94ZZ Excision of Right Clavicle, Percutaneous Endoscopic Approach (ICD-10-PCS; 2020-06-09)
PROC: 0LQ14ZZ Repair Right Shoulder Tendon, Percutaneous Endoscopic Approach (ICD-10-PCS; principal; 2020-06-09 11:02)
DX: M75.101 Unspecified rotator cuff tear or rupture of right shoulder, not specified as traumatic (principal); M75.01 Adhesive capsulitis of right shoulder; M75.41 Impingement syndrome of right shoulder; M19.011 Primary osteoarthritis, right shoulder; M24.112 Other articular cartilage disorders, left shoulder; M65.811 Other synovitis and tenosynovitis, right shoulder
CPT/HCPCS: 82962; 88304-TC; 94760